=== PATIENT | female | born 1960 | race Caucasian/White ===

== ENCOUNTER 2017-02-13 12:40 | Emergency (ER) | payer OTHER ==
[~2017-02-13] VITALS: Ht 157.5 cm; Wt 72.9 kg
[2017-02-13 12:49] VITALS: BP 146/93; PULSE 88; TEMP 36.8; O2SAT 97; Ht 157.5 cm; Wt 72.9 kg
== END 2017-02-13 14:21 | disposition left against medical advice (07) ==
LOC: C.EDB 12:41
DX: R10.9 Unspecified abdominal pain (principal); Z53.21 Procedure and treatment not carried out due to patient leaving prior to being seen by health care provider

== ENCOUNTER 2018-04-12 07:41 | Emergency (ER) | payer BC, OTHER ==
[~2018-04-12] VITALS: Ht 167.6 cm; Wt 76.6 kg
[2018-04-12] MEDS ORDERED: SUCCINYLCHOLINE CHLORIDE 20 MG/ML 10 ML VIAL IV ONE (07:44)
[2018-04-12] MEDS ORDERED: ETOMIDATE 2 MG/ML 20 ML VIAL IV ONE (07:44)
[2018-04-12] MEDS: SODIUM CHLORIDE 0.9% 1000ML 1,000 ML IV SCH ×2 (07:49→10:20)
[2018-04-12] MEDS ORDERED: ETOMIDATE 2 MG/ML 20 ML VIAL IV STA (07:50)
[2018-04-12] MEDS ORDERED: SUCCINYLCHOLINE CHLORIDE 20 MG/ML 10 ML VIAL IV STA (07:50)
[2018-04-12] MEDS ORDERED: FLUO20CA35 PO (07:50)
[2018-04-12] MEDS ORDERED: ALBUAER INH (07:50)
[2018-04-12] MEDS ORDERED: FENTANYL CITRATE INJ 50 MCG/1 ML 2 ML VIAL IV STA (07:50)
[2018-04-12] MEDS ORDERED: BECL40AE8 INH (07:50)
[2018-04-12] MEDS ORDERED: RAPID SEQUENCE INDUCTION BAG ONE (07:51)
[2018-04-12 07:57] VITALS: O2SAT 100; Ht 167.6 cm; Wt 76.6 kg
[2018-04-12] MEDS ORDERED: MANNITOL 25% 50 ML VIAL IV ONE (08:00)
[2018-04-12] MEDS ORDERED: PROPOFOL IV EMULSION 10 MG/ML 100 ML VIAL IV PRN (08:00)
[2018-04-12] MEDS ORDERED: SODIUM CHLORIDE 0.9% 10ML FLUSH IV ONE (08:00)
--- NOTE | 2018-04-12 08:01 | DIAGNOSTIC IMAGING REPORT ---
CT HEAD WITHOUT CONTRAST (CT) CLINICAL HISTORY: Acute change in mental status, unresponsive patient. Possible head trauma. COMPARISON STUDY: No previous studies for comparison. TECHNIQUE: Axial CT of the brain is performed from the vertex to the skull base. IV contrast was not administered for this examination. A dose lowering technique was utilized adhering to the principles of ALARA. CT DOSE: 537.48 mGy.cm FINDINGS: There is a 7 cm interparenchymal hemorrhage involving portions of the right frontal temporal and parietal lobes. There is 15 mm of right to left midline shift. There is intraventricular hemorrhage involving the third fourth and lateral ventricles. Trace subarachnoid hemorrhage is also present. There is cerebral edema with effacement of the cortical sulci. There is diffuse decreased attenuation involving the right temporal lobe. There is white matter edema surrounding the right hemispheric intraparenchymal hemorrhage. There is hydrocephalus with dilatation of the left temporal and occipital horns. The right lateral ventricle is partially effaced. There is subfalcine herniation. There is mass effect on the brainstem. The patient is at risk for brainstem herniation. There is left periorbital and left frontal scalp edema. No calvarial fractures are visualized. IMPRESSION: 1. 7 cm intraparenchymal right hemispheric hemorrhage 2. Intraventricular hemorrhage and trace subarachnoid hemorrhage 3. Subfalcine herniation with 15 mm of right to left midline shift 4. Dilatation of the left temporal horn and left occipital horn 5. Cerebral edema. The patient is at risk for brainstem herniation. Electronically signed by: Lele Gan M.D. 04/12/2018 8:00 AM Dictated Date/Time: 04/12/2018 7:52 AM
[2018-04-12] MEDS ORDERED: NALOXONE HCL 0.4 MG/1 ML VIAL/CARP ONE (08:03)
[2018-04-12] MEDS ORDERED: NiCARDipine IV 25 MG in SODIUM CHLORIDE 0.9% 250ML 240 ML IV STA (08:10)
[2018-04-12 08:14] LABS: ISTAT CREATININE 0.4 mg/dl (0.6-1.3); ISTAT IONIZED CALCIUM 1.07 mmol/l (1.12-1.32); ISTAT POTASSIUM 4.1 mEq/L (3.3-5.0)
[2018-04-12 08:15] LABS: BASO % 0.1 %; BASO ABS # 0.01 K/uL (0-0.2); HEMATOCRIT 43.7 % (37-47); HEMOGLOBIN 15.8 g/dL (12.0-16.0); IG# 0.04 K/uL (0.00-0.02); LYMPH % 5.4 %; LYMPH ABS # 0.78 K/uL (1.2-3.4); MEAN CELL VOLUME 98.9 fL (80-100); MEAN CORPUSCULAR HEMOGLOBIN 35.7 pg (25-34); MEAN CORPUSCULAR HGB CONC 36.2 g/dl (32-36); MEAN PLATELET VOLUME 9.8 fL (7.4-10.4); MONO ABS # 0.72 K/uL (0.11-0.59); NEUT % 89.2 %; NEUT ABS # 12.84 K/uL (1.4-6.5); PLATELET COUNT 206 K/uL (130-400); RED CELL DISTRIBUTION WIDTH CV 12.5 % (11.5-14.5); RED CELL DISTRIBUTION WIDTH SD 45.7 fL (36.4-46.3); WHITE BLOOD COUNT 14.39 K/uL (4.8-10.8)
--- NOTE | 2018-04-12 08:21 | DIAGNOSTIC IMAGING REPORT ---
CHEST ONE VIEW PORTABLE CLINICAL HISTORY: Stroke COMPARISON STUDY: No previous studies for comparison. FINDINGS: The heart is within normal limits in size. There is prominence of the aortic knob, likely secondary to aortic tortuosity. There is no failure. There is no focal pulmonary consolidation. There is an endotracheal tube positioned with its tip at the right mainstem bronchus orifice. The tube should be repositioned. IMPRESSION: 1. Endotracheal tube with its tip at the level of the right mainstem bronchus orifice. 2. No evidence of focal pulmonary consolidation Electronically signed by: Lele Gan M.D. 04/12/2018 8:19 AM Dictated Date/Time: 04/12/2018 8:17 AM
[2018-04-12 08:24] LABS: PTT PATIENT 26.7 SECONDS (21.0-31.0)
[2018-04-12] MEDS ORDERED: NiCARDipine IV 25 MG in SODIUM CHLORIDE 0.9% 250ML 240 ML IV PRN (08:30)
[2018-04-12] MEDS ORDERED: MAGNESIUM SULFATE 1GM / D5W 1 GM BAG IV STA (08:31)
[2018-04-12] MEDS ORDERED: LEVETIRACETAM IV 1,000 MG in DEXTROSE 5% 100ML 100 ML IV STA (08:41)
[2018-04-12 08:49] LABS: BLOOD UREA NITROGEN 4 mg/dl (7-18); CALCIUM 9.4 mg/dl (8.5-10.1); CARBON DIOXIDE 27 mmol/L (21-32); CKMB 27.4 ng/ml (0.5-3.6); CREATININE 0.62 mg/dl (0.60-1.20); GLUCOSE 143 mg/dl (70-99); POTASSIUM 4.1 mmol/L (3.5-5.1); SODIUM 134 mmol/L (136-145)
--- NOTE | 2018-04-12 09:16 | EMERGENCY ROOM VISIT NOTE ---
History First contact with patient: 07:43 Chief Complaint: ALTERED MENTAL STATUS Stated Complaint: UNRESPONSIVE Nursing Triage Summary: Pt found unresponsive on kitchen floor. Pt last seen well was 12 hour prior. CAT Scan showed left intercranial bleeding. History of Present Illness The patient is a 58 year old female who presents to the Emergency Room with complaints of unresponsive this. The patient was found down at home by her . She normally does not drink alcohol however did have one can of beer near her this morning. Upon arrival the patient is obtunded and is doing decerebrate posturing. Her called EMS who placed a cervical collar and attempted to call helicopter however due to weather patterns helicopters are not available to fly. The patient was then brought here for stabilization. Upon arrival to the emergency department the patient just withdraws from pain. Review of Systems See HPI for pertinent positives & negatives. A total of 10 systems reviewed and were otherwise negative. Social History Smoking Status: Never Smoker Alcohol Use: none Drug Use: none Marital Status: Housing Status: lives with family Occupation Status: employed Current/Historical Medications Scheduled Fluoxetine (Prozac), 20 MG PO DAILY Scheduled PRN Albuterol Sulfate (Proventil Hfa), 1 DOSE INH UD PRN for SOB/Wheezing Beclomethasone Dipropionate Hf (Qvar Redihaler), 1 DOSE INH UD PRN for SOB/ Wheezing Physical Exam Vital Signs Date Time Temp Pulse Resp B/P (MAP) Pulse Ox O2 Delivery O2 Flow Rate FiO2 04/12/18 10:23 36.7 88 20 111/83 100 04/12/18 10:23 88 20 111/83 100 04/12/18 08:30 70 04/12/18 07:57 100 Mechanical Ventilator 04/12/18 07:57 36.7 80 30 158/78 96 Mask 04/12/18 07:56 97 Physical Exam GENERAL: Pt unresponsive with decorticate posturing HENT: Normocephalic, Swelling to the left eyesocket. Oropharynx unremarkable. EYES: Normal conjunctiva. Sclera non-icteric. Rt pupil pinpoint, left dilated and reactive NECK: Supple. No nuchal rigidity. Cervical collar in place No JVD. RESPIRATORY: Clear to auscultation. CARDIAC: Regular rate, normal rhythm. Extremities warm and well perfused. Pulses equal. ABDOMEN: Soft, non-distended. No tenderness to palpation. No rebound or guarding. No masses. RECTAL: Deferred. MUSCULOSKELETAL: Chest examination reveals no tenderness. The back is symmetrical on inspection without obvious abnormality. There is no CVA tenderness to palpation. No joint edema. LOWER EXTREMITIES: Calves are equal size bilaterally and non-tender. No edema. No discoloration. NEURO: Pt unresponsive SKIN: No rash or jaundice noted. Medical Decision & Procedures ER Provider Diagnostic Interpretation: CHEST ONE VIEW PORTABLE CLINICAL HISTORY: Stroke COMPARISON STUDY: No previous studies for comparison. FINDINGS: The heart is within normal limits in size. There is prominence of the aortic knob, likely secondary to aortic tortuosity. There is no failure. There is no focal pulmonary consolidation. There is an endotracheal tube positioned with its tip at the right mainstem bronchus orifice. The tube should be repositioned. IMPRESSION: 1. Endotracheal tube with its tip at the level of the right mainstem bronchus orifice. 2. No evidence of focal pulmonary consolidation Electronically signed by: Lele Gan M.D. 04/12/2018 8:19 AM Dictated Date/Time: 04/12/2018 8:[address] HEAD WITHOUT CONTRAST (CT) CLINICAL HISTORY: Acute change in mental status, unresponsive patient. Possible head trauma. COMPARISON STUDY: No previous studies for comparison. TECHNIQUE: Axial CT of the brain is performed from the vertex to the skull base. IV contrast was not administered for this examination. A dose lowering technique was utilized adhering to the principles of ALARA. CT DOSE: 537.48 mGy.cm FINDINGS: There is a 7 cm interparenchymal hemorrhage involving portions of the right frontal temporal and parietal lobes. There is 15 mm of right to left midline shift. There is intraventricular hemorrhage involving the third fourth and lateral ventricles. Trace subarachnoid hemorrhage is also present. There is cerebral edema with effacement of the cortical sulci. There is diffuse decreased attenuation involving the right temporal lobe. There is white matter edema surrounding the right hemispheric intraparenchymal hemorrhage. There is hydrocephalus with dilatation of the left temporal and occipital horns. The right lateral ventricle is partially effaced. There is subfalcine herniation. There is mass effect on the brainstem. The patient is at risk for brainstem herniation. There is left periorbital and left frontal scalp edema. No calvarial fractures are visualized. IMPRESSION: 1. 7 cm intraparenchymal right hemispheric hemorrhage 2. Intraventricular hemorrhage and trace subarachnoid hemorrhage 3. Subfalcine herniation with 15 mm of right to left midline shift 4. Dilatation of the left temporal horn and left occipital horn 5. Cerebral edema. The patient is at risk for brainstem herniation. Electronically signed by: Lele Gan M.D. 04/12/2018 8:00 AM Dictated Date/Time: 04/12/2018 7:52 AM Laboratory Results 04/12/18 07:57 Red Blood Count 4.42, Mean Corpuscular Volume 98.9, Mean Corpuscular Hemoglobin 35.7, Mean Corpuscular Hemoglobin Concent 36.2, Mean Platelet Volume 9.8, Neutrophils (%) (Auto) 89.2, Lymphocytes (%) (Auto) 5.4, Monocytes (%) (Auto) 5.0, Eosinophils (%) (Auto) 0.0, Basophils (%) (Auto) 0.1, Neutrophils # (Auto) 12.84, Lymphocytes # (Auto) 0.78, Monocytes # (Auto) 0.72, Eosinophils # (Auto) 0.00, Basophils # (Auto) 0.01 04/12/18 07:57 Test 04/12/18 07:57 04/12/18 08:00 White Blood Count 14.39 K/uL (4.8-10.8) Red Blood Count 4.42 M/uL (4.2-5.4) Hemoglobin 15.8 g/dL (12.0-16.0) Hematocrit 43.7 % (37-47) Mean Corpuscular Volume 98.9 fL (80-100) Mean Corpuscular Hemoglobin 35.7 pg (25-34) Mean Corpuscular Hemoglobin Concent 36.2 g/dl (32-36) Platelet Count 206 K/uL (130-400) Mean Platelet Volume 9.8 fL (7.4-10.4) Neutrophils (%) (Auto) 89.2 % Lymphocytes (%) (Auto) 5.4 % Monocytes (%) (Auto) 5.0 % Eosinophils (%) (Auto) 0.0 % Basophils (%) (Auto) 0.1 % Neutrophils # (Auto) 12.84 K/uL (1.4-6.5) Lymphocytes # (Auto) 0.78 K/uL (1.2-3.4) Monocytes # (Auto) 0.72 K/uL (0.11-0.59) Eosinophils # (Auto) 0.00 K/uL (0-0.5) Basophils # (Auto) 0.01 K/uL (0-0.2) RDW Standard Deviation 45.7 fL (36.4-46.3) RDW Coefficient of Variation 12.5 % (11.5-14.5) Immature Granulocyte % (Auto) 0.3 % Immature Granulocyte # (Auto) 0.04 K/uL (0.00-0.02) Prothrombin Time 11.0 SECONDS (9.0-12.0) Prothromb Time International Ratio 1.0 (0.9-1.1) Activated Partial Thromboplast Time 26.7 SECONDS (21.0-31.0) Partial Thromboplastin Ratio 1.0 Est Creatinine Clear Calc Drug Dose 102.1 ml/min Estimated GFR () 114.4 Estimated GFR (Non- 98.7 BUN/Creatinine Ratio 6.9 (10-20) Calcium Level 9.4 mg/dl (8.5-10.1) Magnesium Level 1.9 mg/dl (1.8-2.4) Total Creatine Kinase 1137 U/L (26-192) Creatine Kinase MB 27.4 ng/ml (0.5-3.6) Creatine Kinase MB Ratio 2.4 (0-3.0) Troponin I < 0.015 ng/ml (0-0.045) Bedside Hemoglobin 16.0 g/dl (12.0-16.0) Bedside Hematocrit 47 % (37-47) Bedside Sodium 138 mEq/L (135-144) Bedside Potassium 4.1 mEq/L (3.3-5.0) Bedside Chloride 96 mEq/L (101-112) Bedside Total CO2 29 mEq/l (24-31) Anion Gap 18.0 mmol/L (16-25) Bedside Blood Urea Nitrogen 3 mg/dl (7-18) Bedside Creatinine 0.4 mg/dl (0.6-1.3) Bedside Glucose (other) 152 mg/dl (70-99) Bedside Ionized Calcium (Shad) 1.07 mmol/l (1.12-1.32) Ethyl Alcohol mg/dL < 3.0 mg/dl (0-3) Medications Administered Medications (Trade) Dose Ordered Sig/Pushpa Route Start Time Stop Time Status Last Admin Dose Admin Sodium Chloride 1,000 ml @ 50 mls/hr Q20H IV 04/12/18 07:49 04/12/18 11:47 DC 04/12/18 10:20 50 MLS/HR Miscellaneous (Rapid Sequence Induction Bag) 1 ea STK-MED ONCE N/A 04/12/18 07:51 04/12/18 07:52 DC 04/12/18 07:51 1 EA Etomidate (Amidate Inj) 20 mg 0750 STAT IV 04/12/18 07:50 04/12/18 07:52 DC 04/12/18 08:31 20 MG Succinylcholine Chloride (Quelicin Inj) 150 mg NOW STAT IV 04/12/18 07:50 04/12/18 07:52 DC 04/12/18 08:31 150 MG Propofol (Diprivan Iv Emulsion 100ml Vial) 1 dose UD PRN IV 04/12/18 08:00 04/12/18 11:47 DC 04/12/18 10:22 1 DOSE Mannitol (Mannitol 25%) 150 gm ONE ONCE IV 04/12/18 08:00 04/12/18 08:01 DC 04/12/18 08:31 150 GM Sodium Chloride (Sodium Chloride 0.9% 10 ml Flush) 20 ml ONE ONCE IV 04/12/18 08:00 04/12/18 08:01 DC 04/12/18 08:00 20 ML Nicardipine HCl 25 mg/Sodium Chloride 250 ml @ 0 mls/hr Q0M STAT IV 04/12/18 08:10 04/12/18 08:11 DC 04/12/18 08:10 50 MLS/HR Magnesium Sulfate (Magnesium Sulfate 1gm / D5W) 2 gm NOW STAT IV 04/12/18 08:31 04/12/18 08:32 DC 04/12/18 08:31 2 GM Levetiracetam 1000 mg/Dextrose 110 ml @ 440 mls/hr ONE STAT IV 04/12/18 08:41 04/12/18 08:56 DC 04/12/18 08:41 440 MLS/HR Procedure Endotracheal Intubation Indication . The patient was on 100% oxygen via NRB prior to the procedure. Suction, airway equipment, RSI drugs, respiratory equipment, and appropriate personnel were prepared prior to the initiation of the procedure. A time out was taken. Induction was performed with etomidate, succinylcholine. After observing the clinical benefit of the medications, the airway was easily visualized utilizing a glidescope. A 7.5 size ETT tube was placed atraumatically to 25 cm using standard technique. The cuff inflated without signs of malfunction. There were bilateral breath sounds, positive colormetric change, no gastric sounds, a good capnography waveform, and post procedure pulse oximetry was 100%. Post intubation sedation and paralysis was administered using Propofol. There were no complications. ECG Per My Interpretation Indication: other Rate (beats per minute): 68 Rhythm: atrial fibrillation Findings: PVC Comparison ECG Date: no prior available Medical Decision This is a 58-year-old female who presents emergency department obtunded. Upon arrival she was immediately sent for CAT scan of the head. This was concerning for a very large intracranial hemorrhage. Based on this finding along with the possible herniation mannitol was immediately ordered for this patient and I began to give it. A Raymond catheter was placed. I originally contacted [place] however upon learning that no helicopter would be able to fly for the patient the decision was made to contact [facility]. I did discuss these decisions with the family who are in agreement. After talking with [facility]'s neurosurgeon he is concerned that the patient may have a AV malformation as she does not have any history of hypertension and no history of migraines. He strongly recommended that the patient be sent to [facility] as if she is sent to [facility] this may need to go to [place]. I then relayed these findings to the family who then agreed to be sent to [place]. Due to the late ability of the patient's blood pressure she was placed on a nicardipine drip. She was intubated as above and placed on propofol. There was a delay in transfer due to weather. Impression Primary Impression: Altered mental status Additional Impression: ICH (intracerebral hemorrhage) Departure Information Dispostion Transfer Acute Care Facility Condition [facility] Referrals No Doctor, Assigned (PCP) Patient Instructions [facility] Problem Qualifiers Primary Impression: Altered mental status Altered mental status type: unspecified Qualified Codes: R41.82 - Altered mental status, unspecified Additional Impression: ICH (intracerebral hemorrhage) Intracerebral hemorrhage etiology: nontraumatic Cerebral hemorrhage location : unspecified cerebral location Laterality: right Qualified Codes: I61.9 - Nontraumatic intracerebral hemorrhage, unspecified
[2018-04-12 10:23] VITALS: BP 111/83; PULSE 88; TEMP 36.7; O2SAT 100
== END 2018-04-12 10:25 | disposition short-term general hospital (02) ==
LOC: EDBD 07:41 → C.EDB 07:43
DX: I61.9 Nontraumatic intracerebral hemorrhage, unspecified (principal); R03.0 Elevated blood-pressure reading, without diagnosis of hypertension; R22.0 Localized swelling, mass and lump, head